=== PATIENT | female | born 1985 | race Caucasian/White ===

== ENCOUNTER 2019-12-09 19:51 | Outpatient (CLI) | payer MEDICAID ==
[~2019-12-09] VITALS: Ht 152.4 cm; Wt 79.1 kg
--- NOTE | 2019-12-09 19:45 | NUR ---
1944 G3 L2 36.4 WEEK GEST HX REPEAT C/SECT TO LR6 WITH C/O REGULAR CONTRACTIONS SINCE AROUND 1600. WAS AT A [facility] THIS AFTERNOON BUT WENT HOME TO REST WHEN CONTRACTIONS STARTED. 1999 EFM. SVE WITH SOFT UNDILATED CERVIX AND BALOTABLE PRESENTING PART. NEG AMNIOTRACE OBTAINED PER PTS STATEMENT SHE THOUGHT SHE HAD LEAKED A LITTLE FLUID THIS AFTERNOON. CONTRACTIONS EVERY 3-4 MINUTES WITH C/O BACKPAIN. PALPATE MILD TO MOD.
[2019-12-09 20:00] VITALS: BP 114/68; PULSE 93; TEMP 98.6
[2019-12-09] MEDS ORDERED: GLUCOPHAGE500 MG/TAB PO (20:03)
[2019-12-09] MEDS ORDERED: PRENATAL TABLET PO (20:04)
[2019-12-09] MEDS ORDERED: PREVACID 15MG15 M1 PO (20:05)
[2019-12-09 20:07] VITALS: BP 114/68; PULSE 93; TEMP 98.6
--- NOTE | 2019-12-09 20:50 | NUR ---
2049 SVE WITH NO CERVICAL CHANGE NOTED. CONTRACTIONS REMAIN THE SAME. 2054 DR POWERS NOTIFIED AND NEW ORDERS RECEIVED.
--- NOTE | 2019-12-09 21:10 | NUR ---
2110 TYLENOL 1000MG AND VISTARIL 50MG PO GIVEN PER DRS ORDER
[2019-12-09 21:20] VITALS: BP 108/59; PULSE 80
--- NOTE | 2019-12-09 22:10 | NUR ---
2210 DR POWERS HERE. REVIEWED MONITER STRIP. SVE WITH NO CERVICAL CHANGE. ORDER TO DISMISS. 2225 DISMISSED TO HOME WITH INSTRUCTIONS.
== END 2019-12-09 22:25 | disposition home or self-care (01) ==
LOC: LDRO 19:51 → LDR 19:51 → LDRO 22:25
DX: O62.9 Abnormality of forces of labor, unspecified (principal); Z3A.36 36 weeks gestation of pregnancy
CPT/HCPCS: OP

== ENCOUNTER → 2019-12-24 | Outpatient (CLI) | payer MEDICAID ==
[~2019-12-24] MED LIST: FERROUSGLUC256MG; GLUCOPHAGE500 MG/TAB PO; IBU600 MG PO; PEPCID 20MG TAB20 MG PO; PERCOCET 325 MG1 TA2 PO; PRENATAL TABLET PO; PREVACID 15MG15 M1 PO
== END ==
LOC: COL.LAB 08:00
DX: Z20.828 Contact with and (suspected) exposure to other viral communicable diseases (principal)

== ENCOUNTER 2019-12-26 05:22 | Inpatient (IN) | payer MEDICAID ==
[~2019-12-26] VITALS: Wt 79.5 kg
[2019-12-26] VITALS (17 sets, daily range): BP systolic 99–132; BP diastolic 51–79; PULSE 69–98; TEMP 97.8–98.1
[~2019-12-26 05:22] MED LIST changes: -FERROUSGLUC256MG; -IBU600 MG PO; -PEPCID 20MG TAB20 MG PO; -PERCOCET 325 MG1 TA2 PO
--- NOTE | 2019-12-26 06:10 | NUR ---
0530 PT AMBULATORY TO RM210, CHANGED INTO A GOWN AND EFM APPLIED, 0550 IV STARTED IN LT WRIST, 1000ML LR INFUSES WIDE OPEN, LABS DRAWN, REVIEWED CONSENTS AND PT IS SIGNING, VITAL SIGNS STABLE
[2019-12-26] MEDS ORDERED: PEPCID 20MG TAB20 MG PO (06:19)
[2019-12-26] MEDS ORDERED: FERROUSGLUC256MG (06:19)
[2019-12-26 06:36] LABS: BASO % 0.3 % (0.0-2.0); EOS % 0.5 % (0-4.0); GRAN # 6.5 (1.4-6.5); GRAN % 74.2 % (42.2-75.2); LYMPH # 1.5 (1.2-3.4); LYMPH % 16.9 % (20.0-51.0); MEAN CELL VOLUME 108 fl (80.0-100.0); MEAN CORPUSCULAR HGB CONC 31 g/dl (33.0-37.0); MONO # 0.6 (0.1-0.6); MONO % 7.4 % (1.7-9.3); PLATELET COUNT 147 K/mm3 (130-400); RED BLOOD COUNT 2.61 M/mm3 (4.10-5.30); REDCELL DISTRIBUTION WIDTH-CV 14.3 % (11.5-14.5)
[2019-12-26 06:44] LABS: HEMATOCRIT 28.2 % (37.0-47.0); HEMOGLOBIN 8.8 g/dl (12.5-16.0); MEAN CORPUSCULAR HEMOGLOBIN 34 pg (27.0-31.0)
[2019-12-27 00:44] VITALS: BP 108/67; PULSE 72; TEMP 98.2
[2019-12-27 04:12] VITALS: BP 109/58; PULSE 72; TEMP 98.2
[2019-12-27 07:04] LABS: HEMATOCRIT 25.5 % (37.0-47.0); HEMOGLOBIN 8.2 g/dl (12.5-16.0)
[2019-12-27 08:00] VITALS: BP 108/63; PULSE 76; TEMP 98.8
--- NOTE | 2019-12-27 08:00 | NUR ---
Rests in bed, alert. States having trouble getting baby to breastfeed. This nurse offered help, but declined at this time because of baby sleeping.
--- NOTE | 2019-12-27 13:57 | NUR ---
Rests in bed, alert. Ibuprofen 600 mg, percocet 5/325 mg one given per request and as ordered.
[2019-12-27 16:15] VITALS: BP 120/54; PULSE 69; TEMP 97.9
[2019-12-27 20:00] VITALS: BP 117/65; PULSE 78; TEMP 98.8
[2019-12-28 07:00] VITALS: BP 122/68; PULSE 76; TEMP 98.1
[2019-12-28] MEDS ORDERED: IBU600 MG PO (09:00)
[2019-12-28] MEDS ORDERED: PERCOCET 325 MG1 TA2 PO (09:01)
== END 2019-12-28 14:40 | disposition home or self-care (01) | DRG 787 ==
LOC: OB 05:22
PROVIDERS: ADMIT Obstetrics & Gynecology
PROC: 10D00Z1 Extraction of Products of Conception, Low, Open Approach (ICD-10-PCS; principal; 2019-12-26)
DX: O34.211 Maternal care for low transverse scar from previous cesarean delivery (principal); O99.12 Other diseases of the blood and blood-forming organs and certain disorders involving the immune mechanism complicating childbirth; O99.02 Anemia complicating childbirth; D64.9 Anemia, unspecified; Z37.0 Single live birth; D69.6 Thrombocytopenia, unspecified; O69.89X0 Labor and delivery complicated by other cord complications, not applicable or unspecified; Z3A.39 39 weeks gestation of pregnancy; Z88.0 Allergy status to penicillin
CPT/HCPCS: J0690; J1885; J2175; J2370; J2405; J3010; J7120

== ENCOUNTER 2021-06-05 07:01 | Inpatient (IN) | payer MEDICAID ==
[~2021-06-05] VITALS: Ht 152.4 cm; Wt 78.2 kg
[2021-06-05] VITALS (16 sets, daily range): BP systolic 96–146; BP diastolic 39–72; PULSE 50–80; TEMP 98.2–98.4
[~2021-06-05 07:01] MED LIST changes: +FERROUSGLUC256MG; +IBU600 MG PO; +PEPCID 20MG TAB20 MG PO; +PERCOCET 325 MG1 TA2 PO
--- NOTE | 2021-06-05 09:35 | NUR ---
Pt arrived on unit ambulatory with for scheduled repeat . Pt reports occasional contractions, denines any leaking of fluid or vaginal bleeding and reports normal movement. EFM and toco monitors started. Vital signs WNL. Plan of care reviewed and consents signed.
[2021-06-05 10:08] LABS: BASO % 0.3 % (0.0-2.0); EOS % 0.2 % (0.0-4.0); GRAN # 6.8 K/mm3 (1.4-6.5); GRAN % 76.6 % (42.2-75.2); LYMPH # 1.5 K/mm3 (1.2-3.4); LYMPH % 16.4 % (20.0-51.0); MEAN CELL VOLUME 104 fl (80.0-100.0); MEAN CORPUSCULAR HGB CONC 33 g/dl (33.0-37.0); MEAN PLATELET VOLUME 11.5 fl (7.4-10.4); MONO # 0.5 K/mm3 (0.1-0.6); MONO % 5.9 % (1.7-9.3); PLATELET COUNT 125 K/mm3 (130-400); RED BLOOD COUNT 2.59 M/mm3 (4.10-5.30); REDCELL DISTRIBUTION WIDTH-CV 14.9 % (11.5-14.5)
[2021-06-05 10:09] LABS: HEMATOCRIT 26.9 % (37.0-47.0); HEMOGLOBIN 8.8 g/dl (12.5-16.0); MEAN CORPUSCULAR HEMOGLOBIN 34 pg (27-31)
[2021-06-05] MEDS ORDERED: PEPCID 20MG TAB20 MG PO (10:24)
--- NOTE | 2021-06-05 18:20 | NUR ---
Report recieved. Resting in bed, attempting to breastfeed. POC reviewed and whiteboard updated. Tucks and ice packs to bedside - will get up to the restroom following feeding attemmpt. Requests to have Motrin following feeding attempt.
--- NOTE | 2021-06-05 18:20 | NUR ---
REPORT RECIEVED. RESTING IN BED . POC REVIEWED. UPDATED WHITEBOARD. DENIED QUESTIONS OR CONCERNS.
--- NOTE | 2021-06-05 19:00 | NUR ---
Able to slide both legs in the bed. Unable to lift left leg off the bed.
--- NOTE | 2021-06-05 20:30 | NUR ---
Able to lift left leg up off the bed and hold for more than five seconds. . To notify nurse when she is finished so she can get out of bed and ambulate.
--- NOTE | 2021-06-05 21:35 | NUR ---
INFANT WELL. PATIENT REPORTS JENN PERCOCET "HAS NOT HELP. " SECOND PERCOCET ADMINISTERED AT THSI TIME. HAS BEEN FOR AN HOUR. THIS NURSE SWADDLED BABY AND HAD FATHER HOLD TO PATIENT COULD AMBULATE TO THE RESTROOM. SCD'S REMOVED. UP THE RESTROOM, AMBULATED WELL. DURING AMBULATION PATIENT PAUSED MULTIPLE TIMES AND TOOK DEEP BREATHS. REPORTS HAVING "HORRIBLE CRAMPING." FUNDUS WAS FIRM PRIOR TO AMBULATION WITH A ONLY 15% OF HER PERIPAD SATURATED SINCE 190. PAZ CATHERTER DC'D PER PHYSICIAN'S ORDER; 9.5MLS OF SALINE WITHDRAWN FROM BALLOON. FRESH UNDER GARMET, AND PERIPAD IN PLACE FOLLOWING PERICARE. FRESH GOWN ON. ABD BINDER IN PLACE. ONCE ABD BINDER WAS IN PLACE PT AMBULATED WELL AND DENIED FURTHER PAIN OR CRAMPING. SITTING ON THE SIDE OF THE BED. DENIED ASSITANCE TO LAY DOWN. ENCOURAGED TO NAP.
--- NOTE | 2021-06-05 22:10 | NUR ---
This nurse called to pt room at this time. Pt reports she vomited "a lot" and her "caught it" and "dumped it in the toilet." Some residual emisis noted in toilet at this time. patient reports she was vry hot. Cool rag to back of neck. crackers at bedside. alseep in his crib. Pt states, "I feel a lot better now." Encouraged pt to nap till 0030 when the infant should eat again.
[2021-06-06 01:30] VITALS: BP 115/67; PULSE 66; TEMP 98.2
[2021-06-06 05:00] VITALS: BP 133/62; PULSE 64; TEMP 98.5
[2021-06-06 08:45] VITALS: BP 110/64; PULSE 75; TEMP 97.2
[2021-06-06 20:40] VITALS: BP 111/55; PULSE 79; TEMP 97.8
[2021-06-07 09:15] VITALS: BP 119/78; PULSE 85; TEMP 98
[2021-06-07] MEDS ORDERED: IBU800 M1 PO (11:12)
[2021-06-07] MEDS ORDERED: PERCOCET 325 MG1 TA2 PO (11:12)
--- NOTE | 2021-06-08 16:50 | NUR ---
Clinical documentation of faxed to patient's insurance.
== END 2021-06-07 14:00 | disposition home or self-care (01) | DRG 788 ==
LOC: OB 07:01
PROVIDERS: ADMIT Obstetrics & Gynecology
PROC: 10D00Z1 Extraction of Products of Conception, Low, Open Approach (ICD-10-PCS; principal; 2021-06-05)
DX: O34.211 Maternal care for low transverse scar from previous cesarean delivery (principal); Z37.0 Single live birth; O99.284 Endocrine, nutritional and metabolic diseases complicating childbirth; E28.2 Polycystic ovarian syndrome; O99.02 Anemia complicating childbirth; D64.9 Anemia, unspecified; Z3A.39 39 weeks gestation of pregnancy
CPT/HCPCS: J0171; J0690; J1100; J1885; J2210; J2405; J2590; J7120